=== PATIENT | female | born 1995 | race Caucasian/White ===

== ENCOUNTER 2025-06-04 14:05 | Emergency (ER) | payer MEDICAID, SELFPAY ==
[2025-06-04 14:13] VITALS: BP 136/83; PULSE 123; TEMP 36.7; O2SAT 98; BMI 24.9
--- NOTE | 2025-06-04 15:34 | XR_ITS ---
The [address] [address] Patient Name: MARITZA VANESSA MRN: [id number] date: 1995 Sex: F Assigned Patient Location: ER Current Patient Location: ER Accession/Order Number: [id number] Exam Date: 06/04/2025 15:58 Report Date: 06/04/2025 15:58 At the request of: PIETER STAPLETON MD Procedure: XR ankle RT min 3V RIGHT ANKLE - 3 views CLINICAL HISTORY: Right ankle swelling and redness for 2 days. No known injury. COMPARISON: None FINDINGS: Soft tissue swelling is present. Ankle mortise appears intact without acute bony process. XR/XR ankle RT min 3V IMPRESSION: SOFT TISSUE SWELLING WITHOUT ACUTE BONY PROCESS. Impression dictated by: Moises Diamond Jr., D.O. 06/04/2025 3:58 PM Dictation Location: [place] [address] Electronically authenticated by: [id number] Y Date: 06/04/2025 15:58
--- NOTE | 2025-06-04 17:59 | ED_ITS ---
HPI HPI - General Adult General Chief complaint: Extremity Problem, Nontraumatic Stated complaint: R FOOT REDNESS & PAIN Time Seen by Provider: 06/04/25 15:33 Source: patient Mode of arrival: walk-in Limitations: no limitations History of Present Illness HPI narrative: 29-year-old female to the emergency department chief complaint of redness and discomfort about her right ankle. Patient reports that she was out at [facility] this weekend prancing about in the [place] and communing with nature . She noticed this morning that she had some scrapes and some redness to her ankle. She denies any fever, sweats, chills. She does not remember any specific injury. She is otherwise at her baseline health. Related Data Previous Rx's �Medication �Instructions �Recorded cephalexin 500 mg capsule 500 mg PO Q6H 7 days #28 cap s 06/04/25 Allergies Allergy/AdvReac Type Severity Reaction Status Date / Time No Known Drug Allergies Allergy Verified 06/04/25 14:12 Opioid HPI Opioid Management Most Recent Opioid Data: Last Pain Scale 4 Today, 14:49 Review of Systems ROS Status of ROS 10 or more systems reviewed and unremark able except as noted in history and below PFSH PFSH Social History Little interest or pleasure in doing things: not at all Feeling down, depressed, or hopeless: not at all Exam Narrative Exam Narrative: VITALS: I have reviewed the triage vital signs. GENERAL: Well developed, well appearing adult in no acute distress. NEURO: Alert and oriented. Moves all extremities. Face is symmetric and expressive. EYES: PERRL. No scleral icterus or conjunctival injection. No discharge. HENT: Normocephalic, atraumatic. Hearing is grossly intact. Nares grossly patent and without discharge. Mucous membranes moist. NECK: No JVD. Patient moves neck without restriction. Right lower Extremity: DP and PT pulses intact. Limb is similar color and temperature to the contralateral limb. Compartments soft. Ankle edema with mild erythema to the lateral ankle. Multiple small abrasions. No ecchymosis. No medial malleolus tenderness. No lateral malleolus tenderness. No tenderness at the base of the fifth metatarsal. No midfoot tenderness. No fibular head tenderness. Able to bear weight with arches maintained. Sensation is intact over the foot and lower leg. Dorsiflexion/plantar flexion, knee flexion/extension, hip flexion/extension are grossly intact by strength testing. SKIN: Warm and dry. Normal turgor. No rash or lesions appreciated. PSYCH: Mood, affect, and interaction is appropriate to the setting. Constitutional Vital Signs, click to edit/add: Last Vital Signs Temp 98.1 F 06/04/25 14:13 Pulse 123 H 06/04/25 14:13 Resp 18 06/04/25 14:13 BP 136/83 06/04/25 14:13 Pulse Ox 98 06/04/25 14:13 O2 Del Method Room Air 06/04/25 14:13 Course Vital Signs Vital signs: Vital Signs Temperature 98.1 F 06/04/25 14:13 Pulse Rate 123 H 06/04/25 14:13 Respiratory Rate 18 06/04/25 14:13 Blood Pressure 136/83 06/04/25 14:13 Pulse Oximetry 98 06/04/25 14:13 Oxygen Delivery Method Room Air 06/04/25 14:13 Temperature 98.1 F 06/04/25 14:13 Pulse Rate 123 H 06/04/25 14:13 Respiratory Rate 18 06/04/25 14:13 Blood Pressure 136/83 06/04/25 14:13 Pulse Oximetry 98 06/04/25 14:13 Oxygen Delivery Method Room Air 06/04/25 14:13 Medical Decision Making MDM Narrative Medical decision making narrative: 29-year-old female to the emergency department chief complaint of ankle redness and swelling. Vital stable, the patient is afebrile. She has normal range of motion of the joint itself. Does not appear to be septic arthritis. Does not appear to be she has some mild erythema, warmth and edema about the lateral ankle. X-rays obtained and no acute findings. Cellulitis versus inflammation from bug bite. Doubt injury. Will treat with Keflex. Return precautions were discussed. All questions were answered. The patient was discharged home Imaging Data X-ray ankle: Attestation: I have reviewed the pertinent imaging results. Radiologist's impression: ITS Impressions Ankle X-Ray 06/04/25 15:34 IMPRESSION: SOFT TISSUE SWELLING WITHOUT ACUTE BONY PROCESS. Impression dictated by: Moises Diamond Jr., D.O. 06/04/2025 3:58 PM Dictation Location: [place] [address] Electronically authenticated by: [id number] Y Date: 06/04/2025 15:58 Discharge Plan Discharge Chief Complaint: Extremity Problem, Nontraumatic Clinical Impression: Cellulitis Patient Disposition: Home, Self-Care Time of Disposition Decision: 16:21 Condition: Good Mode of Transportation: Private Vehicle Prescriptions / Home Meds: New cephalexin 500 mg capsule 500 mg PO Q6H 7 Days Qty: 28 0RF Print Language: Bolivian Instructions: Cellulitis (ED) Additional Instructions: Call the office of your primary care doctor to arrange for follow-up within the above-stated timeframe. Your ED visit was focused on your acute issue and does not replace primary care. You should review your labs, imaging, and diagnoses f rom this ED visit with your primary care physician. There may be non-emergent/ incidental findings that need further evaluation. You should review your vital signs including blood pressure with your PCP. If you were prescribed medications you should discuss possible side-effects and drug interactions with your pharmacist. Call 911 or go to the nearest Emergency Department if you develop any new or worsening symptoms. Return with worsening redness, warmth, swelling, pain or fever. Referrals: Nehemiah Kendall MD [Physician, Family Practice] - 1 week Physician,Non-StaffMD [Primary Care Provider] - 1 week Discharge Date/Time: 06/04/25 16:31
== END 2025-06-04 16:31 | disposition home or self-care (01) ==
PROVIDERS: Emergency Provider Student in an Organized Health Care Education/Training Program
DX: L03.115 Cellulitis of right lower limb (principal)
CPT/HCPCS: 73610; 99283